=== PATIENT | female | born 1975 | race Caucasian/White ===

== ENCOUNTER → 2016-09-04 | Outpatient (CLI) | payer OTHER | END | disposition home or self-care (01) | LOC: CFH 15:18 | PROVIDERS: ATTEND Physician Assistant | DX: Z12.31 Encounter for screening mammogram for malignant neoplasm of breast (principal) | CPT/HCPCS: 77063; G0202 ==

== ENCOUNTER 2017-05-31 02:02 | Inpatient (IN) | payer OTHER ==
[~2017-05-31] VITALS: Ht 154.9 cm; Wt 71.8 kg
[2017-05-31 02:00] VITALS: BP 130/83
[2017-05-31] MEDS ORDERED: OXYTOCIN 30U/ 0.9% NaCL 500ML 500 ML IV ONE (02:24)
[2017-05-31] MEDS ORDERED: AMPICILLIN 2 GM in SODIUM CHLORIDE 0.9% 100 ML IVPB STA (02:24)
[2017-05-31] MEDS ORDERED: LACTATED RINGERS 1,000 ML IV SCH (02:24)
[2017-05-31] MEDS ORDERED: NEWBORN KIT ONE (02:29)
[2017-05-31] MEDS ORDERED: LIDOCAINE 1%, 20ML ONE (02:29)
[2017-05-31] MEDS ORDERED: FENTANYL PF 100 MCG/2ML ONE (02:29)
[2017-05-31] MEDS ORDERED: FENTANYL PF 100 MCG/2ML IVPush PRN (02:30)
[2017-05-31] MEDS ORDERED: FENTANYL PF 100 MCG/2ML IV PRN (02:30)
[2017-05-31] MEDS ORDERED: MISOPROSTOL 200 MCG TABLET ONE (02:30)
[2017-05-31] MEDS ORDERED: OXYTOCIN 30U/ 0.9% NaCL 500ML 500 ML ONE ×2 (02:30→04:02)
[2017-05-31] MEDS ORDERED: ONDANSETRON 2MG/ML, 2ML IVPush PRN (02:30)
[2017-05-31] MEDS ORDERED: TERBUTALINE 1 MG/ML, 1ML IVPush PRN (02:30)
[2017-05-31] MEDS ORDERED: AMPICILLIN 1 GM in SODIUM CHLORIDE 0.9% 50 ML IVPB SCH (02:30)
[2017-05-31] MEDS ORDERED: PLEASE ENTER ALLERGIES MC SCH (03:00)
[2017-05-31 03:11] LABS: BASOPHILS % (AUTO) 0 % (0-1); EOSINOPHILS # (AUTO) 0.03 x10^3/uL (0-0.4); EOSINOPHILS % (AUTO) 0 % (1-7); LYMPHOCYTES # (AUTO) 1.67 x10^3/uL (1-3.4); LYMPHOCYTES % (AUTO) 13 % (22-44); MD NO; MEAN CORPUSCULAR HEMOGLOBIN 29.5 pg (27.0-34.8); MEAN CORPUSCULAR HGB CONC 34.5 g/dL (32.4-35.8); MEAN CORPUSCULAR VOLUME 85.5 fL (80-100); MEAN PLATELET VOLUME 8.6 fL (7.4-10.4); MONOCYTES # (AUTO) 0.74 x10^3/uL (0.2-0.8); MONOCYTES % (AUTO) 6 % (2-9); NEUTROPHILS % (AUTO) 81 % (42-75); PLATELET COUNT 256 x10^3/uL (130-400); RED BLOOD COUNT 4.24 x10^6/uL (3.82-5.3); RED CELL DISTRIBUTION WIDTH 14.8 % (9.6-15.2)
[2017-05-31] MEDS ORDERED: MISOPROSTOL 200 MCG TABLET PR PRN (04:00)
[2017-05-31] MEDS ORDERED: HYDROcodone/APAP 5/325 TABLET PO PRN (04:00)
[2017-05-31] MEDS ORDERED: OXYcodone/APAP 5/325MG TABLET PO PRN (04:00)
[2017-05-31] MEDS: OXYTOCIN 30U/ 0.9% NaCL 500ML 500 ML IV SCH ×3 (04:36→23:38)
[2017-05-31] MEDS ORDERED: IBUPROFEN 600 MG TABLET ONE (05:21)
[2017-05-31] MEDS: IBUPROFEN 600 MG TABLET PO PRN ×3 (05:23→19:59)
[2017-05-31 05:55] VITALS: BP 106/69
[2017-05-31 06:35] VITALS: BP 102/56
[2017-05-31] MEDS: DOCUSATE 100 MG CAPSULE PO PRN ×2 (07:31→19:59)
[2017-05-31] MEDS: PRENATAL VIT/IRON/FA 1 EACH TABLET PO SCH (07:31)
[2017-05-31 12:00] VITALS: BP 108/64
[2017-05-31 12:18] LABS: BASOPHILS # (AUTO) 0.05 x10^3/uL (0-0.1); BASOPHILS % (AUTO) 0 % (0-1); EOSINOPHILS # (AUTO) 0.01 x10^3/uL (0-0.4); EOSINOPHILS % (AUTO) 0 % (1-7); LYMPHOCYTES # (AUTO) 1.68 x10^3/uL (1-3.4); LYMPHOCYTES % (AUTO) 11 % (22-44); MD NO; MEAN CORPUSCULAR HEMOGLOBIN 29.4 pg (27.0-34.8); MEAN CORPUSCULAR HGB CONC 34.3 g/dL (32.4-35.8); MEAN CORPUSCULAR VOLUME 85.7 fL (80-100); MEAN PLATELET VOLUME 8.4 fL (7.4-10.4); MONOCYTES # (AUTO) 1.12 x10^3/uL (0.2-0.8); MONOCYTES % (AUTO) 7 % (2-9); NEUTROPHILS # (AUTO) 12.35 x10^3/uL (1.8-6.8); NEUTROPHILS % (AUTO) 81 % (42-75); PLATELET COUNT 274 x10^3/uL (130-400); RED BLOOD COUNT 4.24 x10^6/uL (3.82-5.3); RED CELL DISTRIBUTION WIDTH 15.4 % (9.6-15.2)
[2017-05-31 15:45] VITALS: BP 94/62
[2017-05-31 19:37] VITALS: BP 113/70
[2017-06-01 00:45] VITALS: BP 101/62
[2017-06-01 01:40] VITALS: BP 112/72
[2017-06-01] MEDS: IBUPROFEN 600 MG TABLET PO PRN (05:29)
[2017-06-01 07:45] VITALS: BP 113/77
[2017-06-01] MEDS: DOCUSATE 100 MG CAPSULE PO PRN (08:27)
[2017-06-01] MEDS: PRENATAL VIT/IRON/FA 1 EACH TABLET PO SCH (08:27)
[2017-06-01] MEDS: OXYTOCIN 30U/ 0.9% NaCL 500ML 500 ML IV SCH (09:38)
[2017-06-01] MEDS ORDERED: IBUP-1222 PO (10:46)
== END 2017-06-01 13:45 | disposition home or self-care (01) | DRG 775 ==
LOC: LDOP 02:02 → LDIP 02:27 → 2NW 05:34
PROVIDERS: ADMIT Student in an Organized Health Care Education/Training Program; ATTEND Student in an Organized Health Care Education/Training Program
PROC: 10E0XZZ Delivery of Products of Conception, External Approach (ICD-10-PCS; principal; 2017-05-31)
DX: O24.429 Gestational diabetes mellitus in childbirth, unspecified control (principal); O09.523 Supervision of elderly multigravida, third trimester; O99.824 Streptococcus B carrier state complicating childbirth; Z37.0 Single live birth
CPT/HCPCS: 36415; 85025; 86850; 86900; J0290; J3010; J2590; J7120